=== PATIENT | female | born 1980 | race Caucasian/White ===

== ENCOUNTER 2023-05-18 22:03 | Emergency (ER) | payer MEDICAID ==
[~2023-05-18] VITALS: Ht 172.7 cm; Wt 98.9 kg
[~2023-05-18 22:03] MED LIST: CHLORDIAZEPOXID25 MG PO; FLUOXETINE HCL20 MG PO; HYDROXYZINE PAM50 MG PO; LOPERAMIDE2 MG PO; ONDANSETRON ODT4 MG PO; VENTOLIN HFA18 GM INH
--- OUTSIDE RECORDS SUMMARY | 2023-05-18 22:06 | XMS ---
PreManage Notification: LAYLA MALDONADO Security Serials Librarian Events No recent Security Events currently on file CRITERIA MET - [facility] [place] [facility] - [facility] - 2 Visits in 30 Days CARE PROVIDERS -, Moon Echeverria Dentist: Waiter/Waitress Formal Current Dental Clinic PHONE: [phone] TAD JOHNSTON Counselor: Professional Current PHONE: Unknown TOM LUNDBERG Current PHONE: Unknown KARLA OLIVEROS [facility] Current CJael PHONE: Unknown Aniya has no Care Guidelines for this patient. Dejah VISIT COUNT ([address] [facility] [place] 2 [facility] TOTAL 5 NOTE: Visits indicate total known visits. ED/UCC VISIT TRACKING (12 MO.) 05/18/2023 22:04 [facility] [place] [place] TYPE: Emergency COMPLAINT: - BLOOD SUGAR ISSUES 05/17/2023 21:06 [facility] [place] [place] TYPE: Emergency COMPLAINT: - WITHDRAWLS DIAGNOSES: - Allergy status to narcotic agent - Allergy status to other antibiotic agents - Allergy status to penicillin - Chronic obstructive pulmonary disease, unspecified - Opioid use, unspecified with withdrawal - Other senior care (current) drug therapy [facility] [place] [facility] DIAGNOSES: - Intentional self-harm by other specified means, initial encounter - Poisoning by unspecified drugs, medicaments and biological substances, intentional self-harm, initial encounter - Suicidal ideations [facility] [place] [facility] DIAGNOSES: - Intentional self-harm by other specified means, initial encounter - Poisoning by unspecified drugs, medicaments and biological substances, intentional self-harm, initial encounter - Suicidal ideations - Overdose 07/23/2022 02:23 [facility] [place] TYPE: Emergency DIAGNOSES: - Alcohol use, unspecified with intoxication, unspecified - Depression, unspecified - Poisoning by unspecified drugs, medicaments and biological substances, intentional self-harm, initial encounter - Suicidal ideations - POH/ OD - Suicidal INPATIENT VISIT TRACKING (12 MO.) 11/22/2022 02:42 [facility] [place] TYPE: Psychiatric Emergency DIAGNOSES: - Intentional self-harm by other specified means, initial encounter - Poisoning by unspecified drugs, medicaments and biological substances, intentional self-harm, initial encounter - Suicidal ideations [email or web address]
[2023-05-18 22:34] LABS: PH, VENOUS 7.311 (7.31-7.41)
[2023-05-18 22:35] LABS: BASOPHILS 0.3 % (0-2); EOSINOPHILS 1.3 % (0-6); HEMATOCRIT 37.8 % (35.0-50.0); HEMOGLOBIN 11.8 g/dL (12.0-18.0); LYMPHOCYTES 12.2 % (24-44); MCH 25.8 (27-36); MCHC 31.3 g/dl (30-36); MCV 82.3 fl (81-99); MONOCYTES 10.4 % (0-12); NEUTROPHILS 75.8 % (39-80); PLATELET COUNT 267 K/uL (140-440); RBC 4.59 M/ul (4.3-5.7); RDW 15.1 (10.5-15.0)
[2023-05-18 23:08] LABS: ALBUMIN 3.7 g/dL (3.4-5.0); ANION GAP 16.4 (7-21); BILIRUBIN, TOTAL 0.2 ng/dL (0.2-1.0); BUN/CREATININE RATIO 5.26 (6.0-28.6); CALCIUM 8.9 mg/dL (8.5-10.1); CREATININE, SERUM 1.14 mg/dL (0.55-1.02); MAGNESIUM 1.7 mg/dL (1.8-2.4); POTASSIUM 3.4 mmol/L (3.5-5.1); PROTEIN, TOTAL 7.4 g/dL (6.4-8.2)
[2023-05-19 00:41] LABS: BILIRUBIN, URINE NEGATIVE (negative); BLOOD/HGB, URINE NEGATIVE (Negative); KETONE, URINE NEGATIVE (Negative); LEUK ESTERASE, URINE NEGATIVE (negative); NITRITE, URINE NEGATIVE (negative); PH, URINE 5.5 (5-7)
[2023-05-19 00:46] LABS: AMPHETAMINES, UR POSITIVE (NEGATIVE); BARBITURATES, UR NEGATIVE (NEGATIVE); BENZODIAZEPINES, UR POSITIVE (NEGATIVE); BUPRENORPHINE,UR POSITIVE (NEGATIVE); COCAINE, UR NEGATIVE (NEGATIVE); MARIJUANA (THC), UR POSITIVE (NEGATIVE); MDMA, UR NEGATIVE (NEGATIVE); METHADONE, UR NEGATIVE (NEGATIVE); METHAMPHETAMINE, UR NEGATIVE (NEGATIVE); OPIATES, UR NEGATIVE (NEGATIVE); OXYCODONE, UR NEGATIVE (NEGATIVE); PHENCYCLIDINE, UR NEGATIVE (NEGATIVE); TRICYCLIC ANTIDEPRESSANT, UR NEGATIVE (NEGATIVE)
[2023-05-19 00:47] LABS: EPITHELIAL CELLS, URINE SQUAMOUS 3+ /lpf (0-1+)
[2023-05-19 00:48] LABS: BACTERIA, URINE 2+ /hpf (negative); CASTS, URINE NONE SEEN \\lpf; CRYSTALS, URINE NONE SEEN (0-1+); RED BLOOD CELLS, URINE 0-1 /hpf (0-5); REFLEX CULTURE, URINE No (No)
[2023-05-19 02:20] VITALS: BP 123/76
[2023-05-20 12:58] LABS: SERUM, C-PEPTIDE 6.6 ng/mL (0.5-3.3)
== END 2023-05-19 02:25 | disposition home or self-care (01) ==
LOC: ED 22:03
PROVIDERS: Family Medicine
DX: E16.2 Hypoglycemia, unspecified (principal); T50.905A Adverse effect of unspecified drugs, medicaments and biological substances, initial encounter; J44.9 Chronic obstructive pulmonary disease, unspecified; Z88.5 Allergy status to narcotic agent; Z88.0 Allergy status to penicillin; Z88.1 Allergy status to other antibiotic agents; Z79.899 Other long term (current) drug therapy
CPT/HCPCS: 36415; 80053; 81001; 82010; 82803; 83525; 83735; 84681; 85025; 96361; 96374; 99284-25; J3475; J7121

== ENCOUNTER 2023-05-19 09:33 | Emergency (ER) | payer MEDICAID ==
[~2023-05-19] VITALS: Ht 172.7 cm; Wt 98.9 kg
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
[2023-05-19 10:16] VITALS: BP 139/91
== END 2023-05-19 10:18 | disposition home or self-care (01) ==
LOC: ED 09:33
DX: S40.021A Contusion of right upper arm, initial encounter (principal); Z88.0 Allergy status to penicillin; Z88.1 Allergy status to other antibiotic agents; Z88.5 Allergy status to narcotic agent; Z79.899 Other long term (current) drug therapy; Z87.891 Personal history of nicotine dependence; Y04.8XXA Assault by other bodily force, initial encounter
CPT/HCPCS: 99284